=== PATIENT | male | born 1990 | race Caucasian/White ===

== ENCOUNTER 2018-08-04 14:45 | Emergency (ER) | payer SELFPAY ==
[~2018-08-04] VITALS: Ht 180.3 cm; Wt 65.8 kg
[2018-08-04 15:00] VITALS: BP 140/72
[2018-08-04] MEDS ORDERED: methylPREDNISolone SOD SUCC 125 MG/2 ML VL IM ONE (16:15)
[2018-08-04] MEDS ORDERED: cefTRIAXone SOD 1,000 MG VL IM ONE (16:15)
== END 2018-08-04 17:22 | disposition home or self-care (01) ==
LOC: ER 14:45
DX: H60.91 Unspecified otitis externa, right ear (principal); J02.9 Acute pharyngitis, unspecified; J01.90 Acute sinusitis, unspecified
CPT/HCPCS: 96372; 99283; J0696; J2930

== ENCOUNTER 2021-05-04 15:37 | Emergency (ER) | payer MEDICAID ==
[~2021-05-04] VITALS: Ht 180.3 cm; Wt 68.0 kg
[2021-05-04] MEDS ORDERED: IBUPROFEN 800 MG TAB PO ONE (17:00)
[2021-05-04 17:03] VITALS: BP 112/67
== END 2021-05-04 17:17 | disposition home or self-care (01) ==
LOC: ER 15:37
DX: S29.011A Strain of muscle and tendon of front wall of thorax, initial encounter (principal); X50.1XXA Overexertion from prolonged static or awkward postures, initial encounter; Y93.89 Activity, other specified; Y92.89 Other specified places as the place of occurrence of the external cause; Y99.8 Other external cause status
CPT/HCPCS: 71046; 93005